=== PATIENT | female | born 1985 | race Caucasian/White ===

== ENCOUNTER 2016-12-15 13:57 | Emergency (ER) | payer OTHER ==
[~2016-12-15] VITALS: Ht 152.4 cm; Wt 90.0 kg
[2016-12-15 15:33] VITALS: BP 137/71; PULSE 86; TEMP 98.5
== END 2016-12-15 15:33 | disposition home or self-care (01) ==
LOC: COL.ER 13:57
DX: S93.601A Unspecified sprain of right foot, initial encounter (principal); X50.1XXA Overexertion from prolonged static or awkward postures, initial encounter; Y92.480 Sidewalk as the place of occurrence of the external cause